=== PATIENT | female | born 1990 | race Caucasian/White ===

== ENCOUNTER 2022-11-30 16:32 | Emergency (ER) | payer OTHER ==
[2022-11-30] MEDS ORDERED: Lidocaine 1% w/Epinephrine 1:100K 20 ML VIAL ONE (19:08)
[2022-11-30] MEDS ORDERED: HYDROcodone/Acetaminophen 5/325 mg Tablet ONE (19:48)
[2022-11-30] MEDS ORDERED: Bupivacaine 0.25% 10 ML VIAL ONE (20:05)
== END 2022-11-30 20:20 | disposition home or self-care (01) ==
LOC: ERS 16:32
DX: K08.89 Other specified disorders of teeth and supporting structures (principal); E11.9 Type 2 diabetes mellitus without complications; F17.210 Nicotine dependence, cigarettes, uncomplicated
CPT/HCPCS: 64400; 96372; S0020